=== PATIENT | male | born 1985 | race Hispanic/Latino ===

== ENCOUNTER 2018-12-18 23:36 | Emergency (ER) | payer BC ==
[2018-12-18 23:56] VITALS: O2SAT 99
[2018-12-19] MEDS ORDERED: Sodium Chloride 0.9% 1,000 ML IV STA (00:58)
--- NOTE | 2018-12-19 01:03 | ED PDOC ---
HPI: Abdomen Chief Complaint (Nursing): Abdominal Pain Chief Complaint (Provider): abdominal pain History Per: Patient History/Exam Limitations: no limitations Onset/Duration Of Symptoms: Days (3) Current Symptoms Are (Timing): Still Present Location Of Pain/Discomfort: RLQ Associated Symptoms: Nausea, Vomiting, Diarrhea Additional Complaint(s): 33 y/o male presents for evaluation of intermittent right-sided abdominal pain x 3 days, worse tonight. Associated nausea/vomiting x 3, diarrhea. Denies fever, cough, congestion, chest pain, shortness of breath, palpitations, urinary symptoms, recent travel, sick contacts Past Medical History Reviewed: Historical Data, Nursing Documentation, Vital Signs Vital Signs: Last Vital Signs Temp 98.4 F 12/18/18 23:52 Pulse 98 H 12/18/18 23:52 Resp 18 12/18/18 23:52 BP 124/75 12/18/18 23:52 Pulse Ox 99 12/18/18 23:52 - Medical History PMH: Migraine - Surgical History Surgical History: No Surg Hx - Family History Family History: States: No Known Family Hx - Social History Current smoker - smoking cessation education provided: No Alcohol: None Drugs: Denies - Home Medications Home Medications: Ambulatory Orders Medication Instructions Recorded Ciprofloxacin/Ciprofloxa HCl 500 mg PO BID #14 tab 12/12/14 [Ciprofloxacin] Metronidazole [Flagyl] 500 mg PO TID #21 tab 12/12/14 Ondansetron Hydrochloride 4 mg PO Q6 PRN #12 tab 12/12/14 Tramadol Hydrochloride [Tramadol] 50 mg PO Q6 PRN #15 tab 12/12/14 Metoclopramide [Reglan] 10 mg PO Q8 PRN #30 tab 08/20/16 Naproxen [Naprosyn] 500 mg PO BID PRN #30 tab 08/20/16 Dicyclomine [Bentyl] 20 mg PO TID PRN #15 tab 12/19/18 Ondansetron ODT [Zofran ODT] 4 mg PO Q8 PRN #10 odt 12/19/18 - Allergies Allergies/Adverse Reactions: Allergies Allergy/AdvReac Type Severity Reaction Status Date / Time No Known Allergies Allergy Verified 12/18/18 23:51 Review of Systems ROS Statement: Except As Marked, All Systems Reviewed And Found Negative Gastrointestinal: Positive for: Nausea, Vomiting, Abdominal Pain, Diarrhea Physical Exam - Reviewed Nursing Documentation Reviewed: Yes Vital Signs Reviewed: Yes - Physical Exam Appears: Positive for: Well, Non-toxic, Uncomfortable Head Exam: Positive for: ATRAUMATIC, NORMAL INSPECTION, NORMOCEPHALIC Skin: Positive for: Normal Color Eye Exam: Positive for: Normal appearance ENT: Positive for: Normal ENT Inspection Cardiovascular/Chest: Positive for: Regular Rate, Rhythm Respiratory: Positive for: Normal Breath Sounds Gastrointestinal/Abdominal: Positive for: Bowel Sounds, Soft, Tenderness (RLQ). Negative for: Distended, Guarding, Rebound Back: Positive for: Normal Inspection Extremity: Positive for: Normal ROM Neurological/Psych: Positive for: Awake, Alert, Oriented (x3) - Laboratory Results Result Diagrams: 12/19/18 01:17 12/19/18 01:17 - ECG O2 Sat by Pulse Oximetry: 99 - Progress ED Course And Treament: -cbc -cmp -lipase -urinalysis -CT abd/pelvis -IV NS bolus -IV zofran -IV toradol CT SCAN OF THE ABDOMEN AND PELVIS WITH CONTRAST. CLINICAL HISTORY: Right-sided abdominal pain. TECHNIQUE: Multiple axial and coronal CT images were obtained through the abdomen and pelvis after administration of intravenous contrast material. COMMENTS: Bilateral basilar subsegmental atelectatic pulmonary changes. Uncomplicated colonic diverticulosis. Mild amount of fecal residue in the large bowels. The liver is of uniform attenuation without mass or defect. There is no intra or extrahepatic biliary ductal dilatation. The spleen is normal. The gallbladder is within normal limits. The pancreas is of normal contour and attenuation characteristics. There is no evidence of adrenal mass. Both kidneys demonstrate prompt and equal nephrograms. The kidneys are normal in size, shape and configuration. There is no evidence of renal or ureteral mass. No renal or ureteral calculi are identified. There is no hydroureter or hydronephrosis. No evidence for appendicitis. There is no bowel wall thickening. No evidence for small or large bowel obstruction. There is no evidence of abdominal ascites or lymphadenopathy. There is no evidence of intrinsic or extrinsic bladder mass. There is no pelvic ascites or lymphadenopathy. Images of the lung bases show no evidence of pleural or parenchymal mass. There are no pleural effusions. The bony structures are free of lytic or blastic lesions. IMPRESSION: No evidence of acute abdominal or pelvic pathology. Patient states he is feeling better on re-eval. Tolerating PO Patient educated on findings, discharged with rx Zofran, Bentyl Advised increase fluid intake, BRAT diet Return precautions givne Disposition - Clinical Impression Clinical Impression: Gastroenteritis - Patient ED Disposition Is Patient to be Admitted: No Counseled Patient/Family Regarding: Studies Performed, Diagnosis, Need For Followup, Rx Given - Disposition Referrals: Italo Waldron MD [Primary Care Provider] - Disposition: Routine/Home Disposition Time: 03:15 Condition: IMPROVED Prescriptions: Dicyclomine [Bentyl] 20 mg PO TID PRN #15 tab PRN Reason: Pain, Mild (1-3) Ondansetron ODT [Zofran ODT] 4 mg PO Q8 PRN #10 odt PRN Reason: Nausea/Vomiting Instructions: Gastroenteritis (ED) Forms: [facility] ([place])
[2018-12-19 01:22] LABS: BASO % 0.1 % (0.0-2.0); EOS # 0.2 K/uL (0.0-0.7); EOS % 1.3 % (0.0-4.0); HEMOGLOBIN 15.1 g/dL (12.0-18.0); LYMPH # 0.9 K/uL (1.0-4.3); LYMPH % 7.3 % (20.0-40.0); MEAN CELL VOLUME 86.5 fl (80.0-94.0); MEAN CORPUSCULAR HEMOGLOBIN 29.4 pg (27.0-31.0); MEAN PLATELET VOLUME 6.8 fl (7.2-11.7); MONO # 0.9 K/uL (0.0-0.8); MONO % 7.3 % (0.0-10.0); NEUT # 10.6 K/uL (1.8-7.0); PLATELET COUNT 272 K/uL (130-400); RBC 5.11 Mil/uL (4.40-5.90); RED CELL DISTRIBUTION WIDTH 12.6 % (11.5-14.5); WHITE BLOOD COUNT 12.6 K/uL (4.8-10.8)
[2018-12-19 01:26] LABS: INR 1.2; PROTHROMBIN TIME 13.5 Seconds (9.8-13.1)
[2018-12-19 01:29] LABS: ALB/GLOB RATIO 1.2 (1.0-2.1); ALBUMIN 4.3 g/dL (3.5-5.0); ALT/SGPT 33 U/L (21-72); AST/SGOT 20 U/L (17-59); BLOOD UREA NITROGEN 22 mg/dl (9-20); CALCIUM 9.2 mg/dL (8.4-10.2); GFR NON-AFRICAN AMERICAN > 60; LIPASE 91 U/L (23-300); PARTIAL THROMBOPLASTIN TIME 32.9 Seconds (25.6-37.1)
[2018-12-19] MEDS ORDERED: Iohexol 300 100 ML IJ ONE (01:46)
[2018-12-19] MEDS ORDERED: Sodium Chloride 0.9% 50 ML IV ONE (01:46)
[2018-12-19 02:25] LABS: EOSINOPHIL 1 % (0-7); LYMPHOCYTE 8 % (20-50); MONOCYTE 6 % (0-10); NEUTROPHIL 85 % (42-75); PLATELET ESTIMATE NORMAL (NORMAL); TOTAL CELLS COUNTED 100
[2018-12-19 02:27] LABS: ANISOCYTOSIS SLIGHT; OVALOCYTES MODERATE; SPHEROCYTES SLIGHT
[2018-12-19 02:28] LABS: HYPOCHROMIC SLIGHT; TEARDROP CELLS SLIGHT
[2018-12-19 03:11] VITALS: BP 112/68; PULSE 78; RESP 16; TEMP 98.5
--- NOTE | 2018-12-19 11:52 | CT ---
Date of service: 12/19/2018 PROCEDURE: CT Abdomen and Pelvis with contrast HISTORY: right-sided abdominal pain, vomiting COMPARISON: 12/11/2014 TECHNIQUE: Intravenous contrast dose: 90 cc Omnipaque 300. Radiation dose: Total exam DLP = 321.96 mGy-cm. This CT exam was performed using one or more of the following dose reduction techniques: Automated exposure control, adjustment of the mA and/or kV according to patient size, and/or use of iterative reconstruction technique. FINDINGS: LOWER THORAX: Unremarkable. LIVER: Hepatic steatosis. No focal masses. No intrahepatic bile duct dilatation or perihepatic ascites. GALLBLADDER AND BILE DUCTS: Unremarkable. PANCREAS: Unremarkable. No gross lesion or ductal dilatation. SPLEEN: Unremarkable. ADRENALS: Unremarkable. No mass. KIDNEYS AND URETERS: Unremarkable. No hydronephrosis. No solid mass. VASCULATURE: Unremarkable. No aortic aneurysm. No atherosclerotic calcification or mural plaque present. BOWEL: Unremarkable. No obstruction. No gross mural thickening. APPENDIX: Normal appendix. PERITONEUM: Unremarkable. No free fluid. No free air. LYMPH NODES: Unremarkable. No enlarged lymph nodes. BLADDER: Unremarkable. REPRODUCTIVE: Unremarkable. BONES: No acute fracture. OTHER FINDINGS: None. IMPRESSION: No acute or significant findings related to/ accounting for the clinical presentation. Additional benign and/or incidental findings described above. No significant interval change compared to the prior examination(s). Concordant results (preliminary interpretation) provided by [employer]. Procedure Completed: 01:54 Preliminary Report: Interpreted and electronically signed: 02:54. Final Interpretation: 11:49. December 19, 2018.
== END 2018-12-19 03:34 | disposition home or self-care (01) ==
LOC: H.ER 23:36
DX: K52.9 Noninfective gastroenteritis and colitis, unspecified (principal)
CPT/HCPCS: 74177; 80053; 83690; 85025; 85610; 85730; 96374; 96375; 99283; J1885; J2405; J7030; Q9967